=== PATIENT | female | born 1955 | race Caucasian/White ===

== ENCOUNTER 2017-01-14 06:21 | Day surgery (SDC) | payer BC ==
[2017-01-14] MEDS ORDERED: BUPIVACAINE 0.25% W/EPI MPF 30ML VIAL IVP ONE (06:22)
[2017-01-14] MEDS ORDERED: HYDROMORPHONE HCL 2 MG/ML VIAL IV ONE (06:22)
[2017-01-14] MEDS ORDERED: BUPIVACAINE 0.75% W/EPI MPF 30ML VIAL IVP ONE (06:22)
[2017-01-14] MEDS ORDERED: SEVOFLURANE 250 ML INH ONE (06:22)
[2017-01-14] MEDS ORDERED: PROPOFOL 10 MG/ML VIAL IV ONE (06:22)
[2017-01-14] MEDS ORDERED: SCOPOLAMINE 1 PATCH TDSY TD ONE (06:22)
[2017-01-14] MEDS ORDERED: LIDOCAINE 2% MDV (20MG/ML) 20ML VIAL IV ONE (06:22)
[2017-01-14] MEDS ORDERED: PROMETHAZINE HCL 25 MG/ML VIAL IVP ONE (06:22)
[2017-01-14] MEDS ORDERED: ONDANSETRON HCL IV 4 MG/2 ML VIAL IVP ONE (06:22)
[2017-01-14] MEDS ORDERED: HYDROCODONE/APAP 7.5/325MG TABLET PO ONE (06:22)
[2017-01-14] MEDS ORDERED: ACETAMINOPHEN 1,000 MG/100 ML BTL IV ONE (06:22)
[2017-01-14 06:57] LABS: BLOOD UREA NITROGEN 19 mg/dL (6-20); CREATININE 0.8 mg/dL (0.5-0.9); EST GLOMERULAR FILTRATION RATE > 60 mL/min; GLUCOSE,RANDOM 171 mg/dL (74-109)
--- NOTE | 2017-01-14 13:20 | Operative Note ---
DATE OF SURGERY: 01/14/2017 Surgeon: Caesar Leone DO Referring physician: Gavin Frausto DO PREOPERATIVE DIAGNOSES: 1. Torn medial meniscus of the left knee. 2. Chondromalacia of the left knee. POSTOPERATIVE DIAGNOSES: 1. Torn medial meniscus of the left knee. 2. Synovitis of the left knee (3 compartments). 3. Chondromalacia medial femoral condyle, lateral femoral condyle, and patellofemoral articulation left knee. OPERATION: 1. Arthroscopic partial medial meniscectomy left knee. 2. Arthroscopic partial synovectomy left knee (3 compartments). 3. Arthroscopic chondroplasty medial femoral condyle, left femoral condyle, left knee. Anesthesia: General. PROCEDURE: This 61-year-old female was taken to the operating room and then placed in the supine position on the operating room table. A general anesthetic was administered and the left lower extremity was elevated. It was exsanguinated and the tourniquet inflated to 300 mmHg. Arthroscopic knee gant applied. The left knee prepped with Hibiclens and draped in the usual sterile fashion. An inferior lateral portal was established with a 4 mm arthroscope and initial evaluation of the joint demonstrated normal appearance of the suprapatellar pouch, other than the fact that the rather intense chronic synovitis was present anteriorly around the medial side where the medial plica would be and a small plica was present there, but significant synovitis was noted and a synovectomy was performed. This exposed a grade 4 lesion noted throughout the entire trochlea. No cartilage was present whatsoever. Grade 3 changes noted on the patella, but it was really not grossly unstable. The medial and lateral gutters were examined and found to be unremarkable. The medial compartment was entered and grade 2 chondromalacia of the entire weightbearing surface of the medial femoral condyle was present and chondroplasty was performed to stabilize the articular cartilage there. There was an oblique tear of the medial meniscus with the apex at about the 10 o'clock position and this meniscus extended to the meniscal synovial junction and was oblique in orientation. We resected unstable fragments of the meniscus to the apex of the tear and then smoothed and trimmed the balance of the remainder to a stable rim. We then directed our attention to the lateral compartment and a very large lesion involving the entire lateral femoral condyle, with a very severe grade 3 lesion being noted there and large flaps of articular cartilage were present and this was debrided with the rotating shaver. The meniscus however, appeared to be normal. There was synovitis in both the medial and the lateral compartments and partial synovectomy was performed in these areas as well. The joint was then copiously irrigated and suctioned. The portals were infiltrated with 0.25% Marcaine with epinephrine. Sterile dressings were applied. The patient taken to the recovery room in satisfactory condition. 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 A severe tear at the juncture of the body and the posterior horn of the medial meniscus with an oblique tear extending to the meniscal synovial junction. Rather intense chronic synovitis was present throughout this. MTDD
== END 2017-01-14 11:00 | disposition home or self-care (01) ==
LOC: SUR 06:21
PROVIDERS: ATTEND Orthopaedic Surgery
DX: S83.242A Other tear of medial meniscus, current injury, left knee, initial encounter (principal); M94.262 Chondromalacia, left knee; E03.9 Hypothyroidism, unspecified; E11.9 Type 2 diabetes mellitus without complications; Z79.84 Long term (current) use of oral hypoglycemic drugs; Z79.4 Long term (current) use of insulin; E78.00 Pure hypercholesterolemia, unspecified
CPT/HCPCS: 80048; 29881; 29876; 01400; J2405; J1170; J3490; J2550

== ENCOUNTER 2018-04-23 13:50 | Emergency (ER) | payer BC ==
--- NOTE | 2018-04-23 15:23 | Emergency Department Record ---
History of Present Illness - General Chief Complaint: Abdominal Pain Stated Complaint: ABD AND BACK PAIN Time Seen by Provider: 04/23/18 14:32 Source: Patient Mode of Arrival: Ambulatory Limitations: No limitations - History of Present Illness Initial Comments: pt has been having epigastric pain that goes thru to her back for the last week. she has nausea. the pain is intermittent and lasts up to 10 minutes. the pain hits her after she eats Complaint: Abdominal pain Onset/Timin -: Days(s) Location: Epigastric, RUQ Radiation: Epigastric Migration to: Epigastric Severity: Moderate Severity scale (1-10): 8 Quality: Aching, Burning Consistency: Intermittent Improves With: Nothing Worsens With: Nothing Associated Symptoms: Nausea - Related Data Home Medications Medication Instructions Recorded Confirmed Last Taken Aspirin 81 mg PO DAILY 04/23/18 04/23/18 04/23/18 Atorvastatin Calcium 40 mg PO DAILY 04/23/18 04/23/18 04/23/18 B-Complex with Vitamin C [Vitamin 1 each PO DAILY 04/23/18 04/23/18 04/23/18 B-Complex with Vit C] Carvedilol [Coreg] 3.125 mg PO BID 04/23/18 04/23/18 04/23/18 Cholecalciferol (Vitamin D3) 2,000 unit PO DAILY 04/23/18 04/23/18 04/23/18 [Vitamin D3] Empagliflozin/Linagliptin 1 each PO DAILY 04/23/18 04/23/18 04/23/18 [Glyxambi 25 mg-5 mg Tablet] Fluconazole [Diflucan] 100 mg PO WEEKLY 04/23/18 04/23/18 04/23/18 Gabapentin [Neurontin] 100 mg PO TID 04/23/18 04/23/18 04/23/18 Insulin Glargine,Hum.rec.anlog 34 unit SQ QAM 04/23/18 04/23/18 04/23/18 [Lantus Solostar] Levothyroxine Sodium [Synthroid] 137 mcg PO DAILY 04/23/18 04/23/18 04/23/18 Magnesium Oxide [Magnesium] 400 mg PO DAILY 04/23/18 04/23/18 04/23/18 Meloxicam 7.5 mg PO DAILY 04/23/18 04/23/18 04/23/18 Pioglitazone HCl/Metformin HCl 1 each PO BID 04/23/18 04/23/18 04/23/18 [Actoplus Met 15 mg-850 mg Tab] Valsartan/Hydrochlorothiazide 1 each PO DAILY 04/23/18 04/23/18 04/23/18 [Diovan Hct 160-25 mg Tablet] Previous Rx's Medication Instructions Recorded Omeprazole [Prilosec] 20 mg PO DAILY #20 04/23/18 Allergies Allergy/AdvReac Type Severity Reaction Status Date / Time No Known Drug Allergies Allergy Verified 04/23/18 14:28 Travel Screening - Travel/Exposure Within Last 30 Days Have you traveled within the last 30 days?: No - Travel/Exposure Within Last Year Have you traveled outside the [place] in the last year?: No - Additonal Travel Details Have you been exposed to anyone with a communicable illness?: No - Travel Symptoms Symptom Screening: None Review of Systems Reviewed: No additional complaints except as noted below Constitutional: Reports: As per HPI. Denies: Chills, Fever, Malaise, Night sweats, Weakness, Weight change Eyes: Reports: As per HPI. Denies: Eye discharge, Eye pain, Photophobia, Vision change ENT: Reports: As per HPI. Denies: Congestion, Dental pain, Ear pain, Epistaxis , Hearing loss, Throat pain Respiratory: Reports: As per HPI. Denies: Cough, Dyspnea, Hemoptysis, Stridor, Wheezes Cardiovascular: Reports: As per HPI. Denies: Arrhythmia, Chest pain, Dyspnea on exertion, Edema, Murmurs, Orthopnea, Palpitations, Paroxysmal nocturnal dyspnea, Rheumatic Fever, Syncope Endocrine: Reports: As per HPI. Denies: Fatigue, Heat or cold intolerance, Polydipsia, Polyuria Gastrointestinal: Reports: As per HPI, Abdominal pain, Nausea. Denies: Constipation, Diarrhea, Hematemesis, Hematochezia, Melena, Vomiting Genitourinary: Reports: As per HPI. Denies: Abnormal menses, Discharge, Dyspareunia, Dysuria, Frequency, Hematuria, Incontinence, Retention, Urgency Musculoskeletal: Reports: As per HPI. Denies: Arthralgia, Back pain, Gout, Joint swelling, Myalgia, Neck pain Skin: Reports: As per HPI. Denies: Bruising, Change in color, Change in hair/ nails, Lesions, Pruritus, Rash Neurological: Reports: As per HPI. Denies: Abnormal gait, Confusion, Headache, Numbness, Paresthesias, Seizure, Tingling, Tremors, Vertigo, Weakness Psychiatric: Reports: As per HPI. Denies: Anxiety, Auditory hallucinations, Depression, Homicidal thoughts, Suicidal thoughts, Visual hallucinations Hematological/Lymphatic: Reports: As per HPI. Denies: Anemia, Blood Clots, Easy bleeding, Easy bruising, Swollen glands Past Medical History - SOCIAL HISTORY Smoking Status: Never smoker Alcohol Use: None Drug Use: None - RESPIRATORY Hx Respiratory Disorders: Yes - CARDIOVASCULAR Hx Cardio Disorders: Yes Hx Cardiac Cath: Yes (2013) Hx Heart Attack: Yes (2013) Hx Hypertension: Yes Hx Coronary Stent: Yes (2013) - NEURO Hx Neuro Disorders: No - GI Hx GI Disorders: No - Comment:: hyst - ENDOCRINE Hx Endocrine Disorders: Yes Hx Thyroid Disease: Yes - MUSCULOSKELETAL Hx Musculoskeletal Disorders: Yes Hx Arthritis: Yes - PSYCH Hx Psych Problems: No - HEMATOLOGY/ONCOLOGY Hx Hematology/Oncology Disorders: No Family Medical History Any Significant Family History?: Yes Hx Diabetes: Mother Hx Heart Disease: Father, Mother, Brother/Sister Hx Kidney Disease: Father Hx Stroke: Brother/Sister Physical Exam - General General Appearance: Alert, Oriented x3, Cooperative, Mild distress - Head Head exam: Normal inspection - Eye Eye exam: Normal appearance, PERRL, EOMI Pupils: Normal accommodation - ENT ENT exam: Normal exam, Mucous membranes moist, Normal external ear exam, Normal orophraynx Ear exam: Normal external inspection. negative: External canal tenderness Nasal Exam: Normal inspection. negative: Discharge, Sinus tenderness Mouth exam: Normal external inspection, Tongue normal Teeth exam: Normal inspection. negative: Dental caries Throat exam: Normal inspection. negative: Tonsillar erythema, Tonsillar exudate - Neck Neck exam: Normal inspection, Full ROM. negative: Tenderness - Respiratory Respiratory exam: Normal lung sounds bilaterally. negative: Respiratory distress - Cardiovascular Cardiovascular Exam: Regular rate, Normal rhythm, Normal heart sounds - GI/Abdominal GI/Abdominal exam: Soft, Normal bowel sounds, Tenderness (epigastric and ruq) - Rectal Rectal exam: Deferred - exam: Deferred - Extremities Extremities exam: Normal inspection, Full ROM, Normal capillary refill. negative: Tenderness - Back Back exam: Reports: Normal inspection, Full ROM. Denies: Muscle spasm, Rash noted, Tenderness - Neurological Neurological exam: Alert, CN II-XII intact, Normal gait, Oriented X3 - Psychiatric Psychiatric exam: Normal affect, Normal mood - Skin Skin exam: Dry, Intact, Normal color, Warm Course Vital Signs 04/23/18 04/23/18 14:20 14:38 Temperature 97.7 F 97.8 F Pulse Rate 81 Pulse Rate [ 83 Pulse Ox Probe] Respiratory 18 18 Rate Blood Pressure 158/84 Blood Pressure 161/88 [Left Arm] Pulse Ox 98 99 - Reevaluation(s) Reevaluation #1: 04/23/18 18:11 pt remained pain free Medical Decision Making - Lab Data Result diagrams: 04/23/18 16:30 04/23/18 16:30 Disposition Disposition: Discharge Clinical Impression: Renal insufficiency, Hyperglycemia Abdominal pain Qualifiers: Abdominal location: epigastric Qualified Code(s): R10.13 - Epigastric pain Disposition: Home, Self-Care Condition: (1) Good Instructions: Abdominal Pain (ED) Additional Instructions: follow up with dr deleon on wednesday without fail and with dr vega. return sooner if worse. bland diet. Prescriptions: Omeprazole [Prilosec] 20 mg PO DAILY #20 cap.dr Forms: Patient Portal Access Quality - Quality Measures Quality Measures: N/A - Blood Pressure Screening Does Patient Have Any of the Following: No Blood Pressure Classification: Pre-Hypertensive BP Reading Systolic Measurement: 158 Diastolic Measurement: 84 Screening for High Blood Pressure: < Pre-Hypertensive BP, F/U Documented > [ [id number]] Pre-Hypertensive Follow-up Interventions: Follow-up with rescreen every year.
[2018-04-23 16:41] LABS: BASO % 0.7 % (0-6); EOS % 1.2 % (0-6); GRAN % 60.5 % (47-80); HEMATOCRIT 37.6 % (35.0-47.0); HEMOGLOBIN 11.7 gm/dl (11.6-16.0); LYMPH % 27.4 % (16-45); MEAN CELL VOLUME 91.9 fl (81-97); MEAN CORPUSCULAR HEMOGLOBIN 28.6 pg (27-33); MEAN CORPUSCULAR HGB CONC 31.1 g/dl (32-36); MEAN PLATELET VOLUME 9.1 fl (7.4-10.4); MONO % 10.2 % (0-9); PLATELET COUNT 281 K/uL (130-400); RED BLOOD COUNT 4.09 M/uL (3.80-5.40); RED CELL DISTRIBUTION WIDTH 14.7 % (11.5-14.5); WHITE BLOOD COUNT W/O DIFF 5.8 K/uL (4.2-12.2)
[2018-04-23 16:44] LABS: URINE APPEARANCE CLEAR; URINE BILIRUBIN NEGATIVE (NEGATIVE); URINE BLOOD TRACE-I (NEGATIVE); URINE COLOR YELLOW; URINE KETONE NEGATIVE (NEGATIVE); URINE LEUKOCYTE ESTERASE NEGATIVE (NEGATIVE); URINE NITRITE NEGATIVE (NEGATIVE); URINE PROTEIN NEGATIVE (NEGATIVE); URINE UROBILINOGEN 0.2 E.U./dL (0.20 - 1.00)
[2018-04-23 16:54] LABS: URINE GLUCOSE (UA) >=1000 mg/dL (NEGATIVE)
[2018-04-23 16:55] LABS: URINE BACTERIA NONE SEEN; URINE EPITHELIAL CELLS 0 - 2 (FEW); URINE RBC 0 - 2 (NONE SEEN)
[2018-04-23 17:04] LABS: ALB/GLOB RATIO 1.1 (1.1-1.8); ALBUMIN 4.6 g/dL (4.0-5.0); ALKALINE PHOSPHATASE 101 U/L (45-87); ALT/SGPT 24 U/L (<33); AST/SGOT 26 U/L (10.0-35.0); BLOOD UREA NITROGEN 31 mg/dL (8-23); CREATININE 1.3 mg/dL (0.5-0.9); EST GLOMERULAR FILTRATION RATE 44 mL/min; GLUCOSE,RANDOM 271 mg/dL (74-109); LACTIC ACID 1.4 mmol/L (0.5-2.2); TOTAL PROTEIN 8.7 g/dL (6.6-8.7)
[2018-04-23] MEDS ORDERED: 0.9 % SODIUM CHLORIDE 1,000 ML BAG IV ONE (17:18)
--- NOTE | 2018-04-26 18:29 | CT SCAN REPORT ---
DATE: 04/23/2018 at 5:32 p.m. EXAM: EMERGENCY CT OF THE ABDOMEN AND PELVIS WITHOUT CONTRAST. HISTORY: Abdominal pain in the upper epigastric region and left upper quadrant for five days. Bloating. Hysterectomy. TECHNIQUE: Axial CT scan of the abdomen and pelvis performed without oral or intravenous contrast at the referring physician's request. COMPARISON: None. FINDINGS: No calcified gallstones are seen within the gallbladder. No intrarenal calculi identified on either side. No hydronephrosis or hydroureter is seen. No definite ureteral calculus seen on either side, and no bladder calculus evident. Evaluation of the bowel and viscera is extremely limited without oral or intravenous contrast. Given this limitation, no definite hepatic or splenic mass seen. There are several splenic calcifications evident, likely calcified splenic granulomas. No definite adrenal, pancreatic, or renal mass identified. Mild diverticulosis in the left side of the colon but no diverticulitis evident. No appendicitis identified. Very small umbilical hernia containing adipose tissue but no bowel. Thick-walled appearance of the stomach is nonspecific, although may simply due to incomplete distension. No free intraperitoneal air or free intraperitoneal fluid identified. Some mild spurring in the lumbar spine, more so in the visualized thoracic spine. Some facet joint arthropathy in the lower lumbar spine as well. Uterus not identified consistent with the surgical hysterectomy of cholecystectomy. IMPRESSION: 1. APPARENT CALCIFIED SPLENIC GRANULOMAS. 2. NO DEFINITE URINARY TRACT CALCULI OR HYDRONEPHROSIS EVIDENT. 3. NO APPENDICITIS, FREE AIR, OR FREE FLUID EVIDENT. 4. SMALL UMBILICAL HERNIA CONTAINING ADIPOSE TISSUE BUT NO BOWEL. 5. POSTOPERATIVE HYSTERECTOMY. 6. MILD DIVERTICULOSIS LEFT SIDE OF THE COLON BUT NO DIVERTICULITIS EVIDENT. JOB NUMBER: [id number] [facility]
== END 2018-04-23 20:03 | disposition home or self-care (01) ==
LOC: ER 13:50
DX: N28.9 Disorder of kidney and ureter, unspecified (principal); E11.65 Type 2 diabetes mellitus with hyperglycemia; R11.0 Nausea; R10.13 Epigastric pain; R10.11 Right upper quadrant pain; R82.90 Unspecified abnormal findings in urine; I10 Essential (primary) hypertension; E11.9 Type 2 diabetes mellitus without complications; I25.2 Old myocardial infarction; Z79.4 Long term (current) use of insulin; Z79.84 Long term (current) use of oral hypoglycemic drugs
CPT/HCPCS: 74176; 80053; 81001; 83605; 83690; 84484; 85025; 93005; 93010; 99284; J7030